=== PATIENT | male | born 1985 | race Caucasian/White ===

== ENCOUNTER 2018-05-16 15:24 | Inpatient (IN) | payer OTHER ==
[2018-05-16] MEDS ORDERED: SODIUM CHLORIDE 0.9% 1,000 ML IV STA ×2 (15:41)
[2018-05-16] MEDS ORDERED: SODIUM CHLORIDE 0.9% 500 ML 500 ML IV STA (15:41)
[2018-05-16 16:28] LABS: Glucose,Whole Blood 599 mg/dL (75-99)
[2018-05-16 17:00] LABS: Appearance,Urine Clear (Clear); Bilirubin,Urine Negative (Negative); Blood,Urine Negative (Negative); Color,Urine Colorless; Glucose,Urine (UA) 4+ (Negative); Leukocyte Esterase,Urine Negative (Negative); Nitrite,Urine Negative (Negative); Protein,Urine Negative (Negative); Specific Gravity,Urine 1.026 (1.001-1.035); Urobilinogen,Urine <2.0 mg/dL (<2.0)
[2018-05-16 17:01] LABS: Basophils % (A) 1 %; Eosinophils # (A) 0.1 k/uL (0-0.7); Eosinophils % (A) 2 %; HCT 42.4 % (39.0-53.0); HGB 15.7 gm/dL (13.0-17.5); Lymphocytes # (A) 1.7 k/uL (1.0-4.8); Lymphocytes % (A) 28 %; MCH 34.8 pg (25.0-35.0); Mean Platelet Volume 7.5; Monocytes # (A) 0.3 k/uL (0-1.0); Monocytes % (A) 4 %; Neutrophils # (A) 3.8 k/uL (1.3-7.7); Neutrophils % (A) 62 %; Platelet Count 439 k/uL (150-450); RBC 4.51 m/uL (4.30-5.90); RDW 12.7 % (11.5-15.5); WBC 6.1 k/uL (3.8-10.6)
[2018-05-16 17:04] LABS: Ketones,Urine 3+ (Negative)
[2018-05-16 17:06] LABS: ALT 53 U/L (21-72); AST 22 U/L (17-59); Albumin 4.3 g/dL (3.5-5.0); Alkaline Phosphatase 268 U/L (38-126); Anion Gap 28 mmol/L; Blood Urea Nitrogen 18 mg/dL (9-20); Calcium 10.2 mg/dL (8.4-10.2); Carbon Dioxide 17 mmol/L (22-30); Chloride 84 mmol/L (98-107); Magnesium 1.7 mg/dL (1.6-2.3); Phosphorus 6.2 mg/dL (2.5-4.5); Sodium 129 mmol/L (137-145); Total Bilirubin 1.1 mg/dL (0.2-1.3); Total Protein 8.3 g/dL (6.3-8.2)
--- NOTE | 2018-05-16 17:06 | ED ---
Recheck HPI - General Chief Complaint: Recheck/Abnormal Lab/Rx Stated Complaint: Hyperglycemia Time Seen by Provider: 05/16/18 15:40 Source: patient, RN notes reviewed, old records reviewed Mode of arrival: ambulatory Limitations: no limitations - History of Present Illness Initial Comments: This is a 33-year-old male the ER for evaluation. Patient's transfer by his family doctor for evaluation of high blood sugar possible DKA. Patient states he's been severely thirsty and feeling well for a few weeks now. Increasing urination weakness fatigue. No fevers. No real abdominal pain just overall not feeling well. Patient did have abnormal blood sugar on an outpatient basis severely elevated. No new medications no change in medications. Patient has no significant medical history. No family history of diabetes MD Complaint: abnormal lab (Hyperglycemia) -: month(s) Initial Visit For: other (Not feeling well) Returns Today for: Called Because of Abnormal Lab/Test Symptoms Since Prior Visit: no new symptoms Context: called for abnormal lab result Associated Symptoms: malaise, nausea - Related Data Home Medications Medication Instructions Recorded Confirmed No Known Home Medications 05/16/18 05/16/18 Allergies Allergy/AdvReac Type Severity Reaction Status Date / Time No Known Allergies Allergy Verified 05/16/18 16:16 Review of Systems ROS Statement: Those systems with pertinent positive or pertinent negative responses have been documented in the HPI. ROS Other: All systems not noted in ROS Statement are negative. Past Medical History Past Medical History: No Reported History History of Any Multi-Drug Resistant Organisms: None Reported Additional Past Surgical History / Comment(s): plate in arm Past Psychological History: No Psychological Hx Reported Smoking Status: Never smoker Past Alcohol Use History: Occasional Past Drug Use History: None Reported General Exam Limitations: no limitations General appearance: alert, in no apparent distress Head exam: Present: atraumatic, normocephalic, normal inspection Eye exam: Present: normal appearance, PERRL, EOMI. Absent: scleral icterus, conjunctival injection, periorbital swelling ENT exam: Present: normal exam, mucous membranes moist Neck exam: Present: normal inspection. Absent: tenderness, meningismus, lymphadenopathy Respiratory exam: Present: normal lung sounds bilaterally. Absent: respiratory distress, wheezes, rales, rhonchi, stridor Cardiovascular Exam: Present: regular rate, normal rhythm, normal heart sounds. Absent: systolic murmur, diastolic murmur, rubs, gallop, clicks GI/Abdominal exam: Present: soft, normal bowel sounds. Absent: distended, tenderness, guarding, rebound, rigid Extremities exam: Present: normal inspection, full ROM, normal capillary refill. Absent: tenderness, pedal edema, joint swelling, calf tenderness Back exam: Present: normal inspection Neurological exam: Present: alert, oriented X3, CN II-XII intact Psychiatric exam: Present: normal affect, normal mood Skin exam: Present: warm, dry, intact, normal color. Absent: rash Course Vital Signs 05/16/18 05/16/18 05/16/18 15:32 17:24 17:30 Temperature 98.3 F Pulse Rate 98 80 77 Respiratory 18 18 21 Rate Blood Pressure 117/81 119/86 O2 Sat by Pulse 100 97 97 Oximetry - Reevaluation(s) Reevaluation #1: 05/16/18 17:58 Medical record is reviewed Reevaluation #2: 05/16/18 17:58 Patient does feel improved with hydration Medical Decision Making - Medical Decision Making 31 male the ER with new onset diabetes and DKA. Patient will be admitted for treatment of blood sugar correction of blood sugar and diabetic education. - Lab Data Result diagrams: 05/16/18 15:56 05/16/18 15:56 Lab Results 05/16/18 05/16/18 05/16/18 Range/Units 15:56 15:56 15:56 WBC 6.1 (3.8-10.6) k/uL RBC 4.51 (4.30-5.90) m/uL Hgb 15.7 (13.0-17.5) gm/dL Hct 42.4 (39.0-53.0) % MCV 94.0 (80.0-100.0) fL MCH 34.8 (25.0-35.0) pg MCHC 37.0 (31.0-37.0) g/dL RDW 12.7 (11.5-15.5) % Plt Count 439 (150-450) k/uL Neutrophils % 62 % Lymphocytes % 28 % Monocytes % 4 % Eosinophils % 2 % Basophils % 1 % Neutrophils # 3.8 (1.3-7.7) k/uL Lymphocytes # 1.7 (1.0-4.8) k/uL Monocytes # 0.3 (0-1.0) k/uL Eosinophils # 0.1 (0-0.7) k/uL Basophils # 0.0 (0-0.2) k/uL Sodium 129 L (137-145) mmol/L Potassium 5.0 (3.5-5.1) mmol/L Chloride 84 L (98-107) mmol/L Carbon Dioxide 17 L (22-30) mmol/L Anion Gap 28 mmol/L BUN 18 (9-20) mg/dL Creatinine 0.90 (0.66-1.25) mg/dL Est GFR (CKD-EPI)AfAm >90 (>60 ml/min/1.73 sqM) Est GFR (CKD-EPI)NonAf >90 (>60 ml/min/1.73 sqM) Glucose 561 H* (74-99) mg/dL POC Glucose (mg/dL) (75-99) mg/dL POC Glu Logistics Associate ID Calcium 10.2 (8.4-10.2) mg/dL Phosphorus 6.2 H (2.5-4.5) mg/dL Magnesium 1.7 (1.6-2.3) mg/dL Total Bilirubin 1.1 (0.2-1.3) mg/dL AST 22 (17-59) U/L ALT 53 (21-72) U/L Alkaline Phosphatase 268 H (38-126) U/L Total Protein 8.3 H (6.3-8.2) g/dL Albumin 4.3 (3.5-5.0) g/dL Urine Color Colorless Urine Appearance Clear (Clear) Urine pH 5.0 (5.0-8.0) Ur Specific Darby 1.026 (1.001-1.035) Urine Protein Negative (Negative) Urine Glucose (UA) 4+ H (Negative) Urine Ketones 3+ H (Negative) Urine Blood Negative (Negative) Urine Nitrite Negative (Negative) Urine Bilirubin Negative (Negative) Urine Urobilinogen <2.0 (<2.0) mg/dL Ur Leukocyte Esterase Negative (Negative) Acetone, Qual Positive (Negative) 05/16/18 Range/Units 16:03 WBC (3.8-10.6) k/uL RBC (4.30-5.90) m/uL Hgb (13.0-17.5) gm/dL Hct (39.0-53.0) % MCV (80.0-100.0) fL MCH (25.0-35.0) pg MCHC (31.0-37.0) g/dL RDW (11.5-15.5) % Plt Count (150-450) k/uL Neutrophils % % Lymphocytes % % Monocytes % % Eosinophils % % Basophils % % Neutrophils # (1.3-7.7) k/uL Lymphocytes # (1.0-4.8) k/uL Monocytes # (0-1.0) k/uL Eosinophils # (0-0.7) k/uL Basophils # (0-0.2) k/uL Sodium (137-145) mmol/L Potassium (3.5-5.1) mmol/L Chloride (98-107) mmol/L Carbon Dioxide (22-30) mmol/L Anion Gap mmol/L BUN (9-20) mg/dL Creatinine (0.66-1.25) mg/dL Est GFR (CKD-EPI)AfAm (>60 ml/min/1.73 sqM) Est GFR (CKD-EPI)NonAf (>60 ml/min/1.73 sqM) Glucose (74-99) mg/dL POC Glucose (mg/dL) 599 H (75-99) mg/dL POC Glu Logistics Associate ID Gissell Griffin Calcium (8.4-10.2) mg/dL Phosphorus (2.5-4.5) mg/dL Magnesium (1.6-2.3) mg/dL Total Bilirubin (0.2-1.3) mg/dL AST (17-59) U/L ALT (21-72) U/L Alkaline Phosphatase (38-126) U/L Total Protein (6.3-8.2) g/dL Albumin (3.5-5.0) g/dL Urine Color Urine Appearance (Clear) Urine pH (5.0-8.0) Ur Specific Darby (1.001-1.035) Urine Protein (Negative) Urine Glucose (UA) (Negative) Urine Ketones (Negative) Urine Blood (Negative) Urine Nitrite (Negative) Urine Bilirubin (Negative) Urine Urobilinogen (<2.0) mg/dL Ur Leukocyte Esterase (Negative) Acetone, Qual (Negative) - EKG Data -: EKG Interpreted by Me (EKG shows normal sinus rhythm rate of 90, SC 140, QRS 80, QTC 398) - Radiology Data Radiology results: report reviewed (CT head and pelvis is negative for acute disease), image reviewed Disposition Clinical Impression: Acute hyperglycemia, DKA (diabetic ketoacidoses) Disposition: ADMITTED IP TO THIS [facility] Condition: Fair Is patient prescribed a controlled substance at d/c from ED?: No Referrals: Zachary Ward MD [Primary Care Provider] - 1-2 days
[2018-05-16 17:10] LABS: Glucose 561 mg/dL (74-99)
[2018-05-16] MEDS ORDERED: SODIUM CHLORIDE 0.9% 1,000 ML IV ONE (17:58)
[2018-05-16] MEDS ORDERED: INSULIN REGULAR 100 UNIT in SODIUM CHLORIDE 0.9% 100 ML IV SCH ×2 (18:00→18:45)
[2018-05-16 18:32] LABS: Glucose,Whole Blood 418 mg/dL (75-99)
--- NOTE | 2018-05-16 18:35 | CT ---
EXAMINATION TYPE: CT abdomen pelvis w con DATE OF EXAM: 05/16/2018 COMPARISON: None HISTORY: Hyperglycemia. CT DLP: 633.5 mGycm Automated exposure control for dose reduction was used. TECHNIQUE: Helical acquisition of images was performed from the lung bases through the pelvis. CONTRAST: Performed without Oral Contrast and with IV Contrast, patient injected with 100ml mL of Isovue 300. FINDINGS: Lung bases are clear. There is no pleural effusion. Heart size is normal. There is no pericardial eff usion. Liver spleen pancreas and stomach appear normal. Bile ducts are not dilated. There is no adrenal mass . Gallbladder appears normal. Kidneys show satisfactory contrast opacification. There is no hydronephrosis. Ureters are not dilated . There is no retroperitoneal adenopathy. Bladder distends smoothly. There is no inguinal hernia. The re is no free fluid in the pelvis. There is no evidence of free air. There is no ascites. There is no evidence of thickened appendix. Appendix appears posterior and is not dilated. There is a dilated loop of jejunum in the left upper quadrant that measures up to 3 cm. The lumbar ve rtebra have normal alignment. Disc spaces are fairly normal. Bony pelvis is intact. IMPRESSION: DILATED PROXIMAL SMALL BOWEL COULD RELATE TO LOCALIZED ILEUS AND GASTROENTERITIS. I DO NOT SUSPECT A BOWEL OBSTRUCTION.. NO FREE AIR.
[2018-05-16 19:49] LABS: ABG Base Excess -2.8 mmol/L; ABG HCO3 22 mmol/L (21-25); ABG Oxygen Saturation 96.3 % (94-97); ABG PCO2 36 mmHg (35-45); ABG PO2 88 mmHg (83-108); ABG TCO2 23 mmol/L (19-24)
[2018-05-16 19:54] LABS: Glucose,Whole Blood 358 mg/dL (75-99)
[2018-05-16] MEDS ORDERED: MORPHINE SULFATE 4 MG/ML SYRINGE IVP PRN (20:08)
[2018-05-16] MEDS ORDERED: ONDANSETRON 4 MG/2 ML VIAL IVP PRN (20:08)
--- NOTE | 2018-05-16 20:09 | P.HPIM ---
History of Present Illness H&P Date: 05/16/18 Chief Complaint: Fatigue and thirst referred from his PCPs office for elevated blood sugars The patient is a previously healthy 33-year-old male that presented to the ER via private vehicle with his mother after being referred here from his PCPs office. Apparently the patient had been seen in clinic and was noted to have unreadable elevated blood sugars. The patient himself reports 3 weeks of increasing fatigue, excessive thirst, and frequent urination the day and at night. Over the last 4 days the patient hasn't noted nausea and mild nonradiating left central abdominal pain. The patient also complains of lightheadedness and dizziness, he denies any chest pain Or shortness of breath. The patient reports a previous URI approximately 4 weeks ago where he had runny nose and sore throat which have now resolved. In the ER the patient received a comprehensive workup with noted abnormal lab serum sodium 129 serum bicarb 17, serum blood sugar of 561, serum phosphorus 6.2, alkaline phosphatase 268, urinalysis positive for glucose and ketones and positive serum acetone. He was given IV fluids and started on IV insulin drip and recommended for admission for DKA Review of Systems Pertinent positives per HPI all other review of systems otherwise negative Past Medical History Past Medical History: No Reported History History of Any Multi-Drug Resistant Organisms: None Reported Additional Past Surgical History / Comment(s): plate in arm Past Psychological History: No Psychological Hx Reported Smoking Status: Never smoker Past Alcohol Use History: Occasional Past Drug Use History: None Reported - Past Family History Father Family Medical History: Cancer Additional Family Medical History / Comment(s): SKIN Mother Additional Family Medical History / Comment(s): PSORASIS Medications and Allergies Home Medications Medication Instructions Recorded Confirmed Type No Known Home Medications 05/16/18 05/16/18 History Allergies Allergy/AdvReac Type Severity Reaction Status Date / Time No Known Allergies Allergy Verified 05/16/18 16:16 Physical Exam Vitals: Vital Signs Temp Pulse Resp BP Pulse Ox 05/16/18 17:30 77 21 119/86 97 05/16/18 17:24 80 18 97 05/16/18 15:32 98.3 F 98 18 117/81 100 Intake and Output 05/16/18 05/16/18 05/16/18 06:59 14:59 22:59 Other: Weight 65.771 kg Constitutional: No acute distress, conversant, pleasant Eyes: Anicteric sclerae, moist conjunctiva, no lid-lag, PERRLA ENMT: Dry mucous membranes, normal oropharynx Neck:Supple, FROM, no masses, or JVD, No carotid bruits; No thyromegaly Lungs: Clear to auscultation, Clear to percussion, Normal respiratory effort, no accessory muscle use Cardiovascular: Heart regular in rate and rhythm, No murmurs, gallops, or rubs no peripheral edema Abdominal: Soft Nontender, nom distended, no guarding, no rebound or rigidity, Normoactive bowel sounds No hepatomegaly, No splenomegaly, No palpable mass No abdominal wall hernia noted Skin: Normal temperature, tone, texture, turgor, No induration No subcutaneous nodules, No rash, lesions, No ulcers Extremities:No digital cyanosis No clubbing, Pedal pulses intact and symmetr ical Radial pulses intact and symmetrical Normal gait and station, No calf tenderness Psychiatric: Alert and oriented to person, place and time, Appropriate affect Intact judgement Neuro: Muscles Strength 5/5 in all 4 extremities, Sensation to light touch grossly present throughout, Cranial nerves II-XII grossly intact. No focal sensory deficits Results CBC & Chem 7: 05/16/18 15:56 05/17/18 00:13 Labs: Abnormal Lab Results - Last 24 Hours (Table) 05/16/18 05/16/18 05/16/18 Range/Units 15:56 15:56 16:03 Sodium 129 L (137-145) mmol/L Chloride 84 L (98-107) mmol/L Carbon Dioxide 17 L (22-30) mmol/L Glucose 561 H* (74-99) mg/dL POC Glucose (mg/dL) 599 H (75-99) mg/dL Phosphorus 6.2 H (2.5-4.5) mg/dL Alkaline Phosphatase 268 H (38-126) U/L Total Protein 8.3 H (6.3-8.2) g/dL Urine Glucose (UA) 4+ H (Negative) Urine Ketones 3+ H (Negative) 05/16/18 05/16/18 Range/Units 18:29 19:52 Sodium (137-145) mmol/L Chloride (98-107) mmol/L Carbon Dioxide (22-30) mmol/L Glucose (74-99) mg/dL POC Glucose (mg/dL) 418 H 358 H (75-99) mg/dL Phosphorus (2.5-4.5) mg/dL Alkaline Phosphatase (38-126) U/L Total Protein (6.3-8.2) g/dL Urine Glucose (UA) (Negative) Urine Ketones (Negative) Assessment and Plan (1) DKA (diabetic ketoacidoses) Current Visit: Yes Status: Acute Code(s): E13.10 - OTH DIABETES MELLITUS WITH KETOACIDOSIS WITHOUT COMA SNOMED Code(s): 315159475 (2) Type 1 diabetes Current Visit: Yes Status: Acute Code(s): E10.9 - TYPE 1 DIABETES MELLITUS WITHOUT COMPLICATIONS SNOMED Code(s): 42993892 (3) Hyponatremia Current Visit: Yes Status: Acute Code(s): E87.1 - HYPO-OSMOLALITY AND HYPONATREMIA SNOMED Code(s): 45857183 Plan: The patient is admitted anticipated greater than 2 midnight stay with DKA and new onset type 1 diabetes after presenting with dehydration, fatigue, dizziness and elevated blood sugars. Patient was given aggressive IV fluid rehydration the ER and started on insulin drip which will be continued. We'll continue to check serial electrolytes for resolution of his anion gap. We'll obtain a chest x-ray and EKG and ABG and A1c with plans to consult conservation educator and dietitian. CT abdomen and pelvis suggested ileus versus gastroenteritis. We'll continue to manage a patient's symptoms supportively with morphine and Zofran for pain and an nausea respectively. We'll continue to monitor his clinical course CODE STATUS Full code Discussed plan of care with: Patient and his mother Anticipated discharge 2-3 days Prophylaxis : Protonix and SCDs respectively
--- NOTE | 2018-05-16 20:31 | XR ---
EXAMINATION TYPE: XR chest 2V DATE OF EXAM: 05/16/2018 COMPARISON: NONE HISTORY: Chest pain TECHNIQUE: Frontal and lateral views of the chest are obtained. FINDINGS: Heart and mediastinum are normal. Lungs are clear. Diaphragm is normal. Bony thorax appear s normal. Pulmonary vascularity is normal. There are chest leads. IMPRESSION: Normal chest.
[2018-05-16 20:48] LABS: Glucose,Whole Blood 380 mg/dL (75-99)
[2018-05-16 21:50] LABS: Anion Gap 19 mmol/L; Blood Urea Nitrogen 15 mg/dL (9-20); Carbon Dioxide 18 mmol/L (22-30); Chloride 95 mmol/L (98-107); Glucose 334 mg/dL (74-99); Sodium 132 mmol/L (137-145)
[2018-05-16 21:52] LABS: Potassium 4.7 mmol/L (3.5-5.1)
[2018-05-16 22:37] LABS: Glucose,Whole Blood 367 mg/dL (75-99)
[2018-05-16 23:40] LABS: Glucose,Whole Blood 253 mg/dL (75-99)
[2018-05-17 00:43] LABS: Glucose,Whole Blood 170 mg/dL (75-99)
[2018-05-17 01:03] LABS: Anion Gap 14 mmol/L; Blood Urea Nitrogen 15 mg/dL (9-20); Carbon Dioxide 22 mmol/L (22-30); Chloride 98 mmol/L (98-107); Sodium 134 mmol/L (137-145)
[2018-05-17 01:04] LABS: Glucose 183 mg/dL (74-99); Phosphorus 4.4 mg/dL (2.5-4.5); Potassium 3.8 mmol/L (3.5-5.1)
[2018-05-17 01:48] LABS: Glucose,Whole Blood 202 mg/dL (75-99)
[2018-05-17 02:48] LABS: Glucose,Whole Blood 125 mg/dL (75-99)
[2018-05-17 03:49] LABS: Glucose,Whole Blood 68 mg/dL (75-99)
[2018-05-17 04:23] LABS: Glucose,Whole Blood 91 mg/dL (75-99)
[2018-05-17 05:54] LABS: Glucose,Whole Blood 254 mg/dL (75-99)
[2018-05-17] MEDS: METOCLOPRAMIDE 5 MG/ML 2 ML VIAL IVP SCH ×5 (06:19→17:37)
[2018-05-17] MEDS: D5-0.45% NACL WITH KCL 20MEQ/L 1,000 ML IV SCH ×3 (06:22→11:44)
[2018-05-17 06:55] LABS: Glucose,Whole Blood 290 mg/dL (75-99)
[2018-05-17] MEDS: SODIUM CHLORIDE 0.9% 1,000 ML IV SCH ×2 (07:16→07:17)
[2018-05-17 08:14] LABS: Anion Gap 12 mmol/L; Blood Urea Nitrogen 13 mg/dL (9-20); Calcium 8.4 mg/dL (8.4-10.2); Carbon Dioxide 22 mmol/L (22-30); Chloride 99 mmol/L (98-107); Glucose 239 mg/dL (74-99); Potassium 3.5 mmol/L (3.5-5.1); Sodium 133 mmol/L (137-145)
[2018-05-17 08:36] LABS: Glucose,Whole Blood 260 mg/dL (75-99)
[2018-05-17] MEDS: PANTOPRAZOLE 40 MG/10 ML VIAL IVP SCH (08:39)
[2018-05-17 09:42] LABS: Glucose,Whole Blood 282 mg/dL (75-99)
[2018-05-17 10:55] LABS: Glucose,Whole Blood 259 mg/dL (75-99)
[2018-05-17] MEDS ORDERED: INSULIN DETEMIR (LEVEMIR) 100 UNIT/ML SYR SQ STA (11:30)
[2018-05-17 11:37] LABS: Glucose,Whole Blood 214 mg/dL (75-99)
[2018-05-17] MEDS: INSULIN ASPART (NovoLOG) 100 UNIT/ML VIAL SQ SCH ×2 (11:47→17:33)
[2018-05-17 12:49] LABS: Anion Gap 7 mmol/L; Blood Urea Nitrogen 11 mg/dL (9-20); Calcium 8.7 mg/dL (8.4-10.2); Carbon Dioxide 26 mmol/L (22-30); Chloride 99 mmol/L (98-107); Glucose 180 mg/dL (74-99); Potassium 3.6 mmol/L (3.5-5.1); Sodium 132 mmol/L (137-145)
[2018-05-17 12:56] LABS: Glucose,Whole Blood 303 mg/dL (75-99)
--- NOTE | 2018-05-17 12:59 | P.PN ---
Subjective Progress Note Date: 05/17/18 Principal diagnosis: DKA Patient was examined. No acute events overnight. Patient reports mild nausea but no vomiting. He denies any fever or chills. He denies any chest pain, shortness breath or palpitations. Seen by staff development educator. Objective - Vital Signs Vital signs: Vital Signs Temp 98.3 F 05/17/18 08:00 Pulse 78 05/17/18 12:00 Resp 18 05/17/18 12:00 BP 111/68 05/17/18 12:00 Pulse Ox 98 05/17/18 08:00 Intake & Output 05/16/18 05/17/18 05/17/18 18:59 06:59 18:59 Intake Total 38.690 13.111 Balance 38.690 13.111 Weight 65.771 kg 65.5 kg Intake: Intake, IV Titration 38.690 13.111 Amount Insulin Regular 100 unit 38.690 13.111 In Sodium Chloride 0.9% 100 ml @ 0.05 UNITS/KG/HR 3.321 mls/hr IV .Q24H [facility] Rx#:[id number] Other: # Voids 1 1 - Exam General: [non toxic], [no distress], [appears at stated age] Derm: [warm], [dry] Head: [atraumatic], [normocephalic], [symmetric] Eyes: [EOMI], [no lid lag], [anicteric sclera] Mouth: [no lip lesion], [mucus membranes moist] Cardiovascular: [S1S2 reg], [no murmur], [positive posterior tibial pulse bilateral], Lungs: [CTA bilateral], [no rhonchi, no rales] , [no accessory muscle use] Abdominal: [soft], [ nontender to palpation], [no guarding], [no appreciable organomegaly] Ext: [no gross muscle atrophy], [no edema], [no contractures] Neuro: [ CN II-XI grossly intact], [no focal neuro deficits] Psych: [Alert], [oriented], [appropriate affect] - Labs CBC & Chem 7: 05/16/18 15:56 05/17/18 07:48 Labs: Abnormal Lab Results - Last 24 Hours (Table) 03/20/19 03/20/19 03/20/19 Range/Units 15:56 15:56 16:03 Sodium 129 L (137-145) mmol/L Chloride 84 L (98-107) mmol/L Carbon Dioxide 17 L (22-30) mmol/L Creatinine (0.66-1.25) mg/dL Glucose 561 H* (74-99) mg/dL POC Glucose (mg/dL) 599 H (75-99) mg/dL Phosphorus 6.2 H (2.5-4.5) mg/dL Alkaline Phosphatase 268 H (38-126) U/L Total Protein 8.3 H (6.3-8.2) g/dL Urine Glucose (UA) 4+ H (Negative) Urine Ketones 3+ H (Negative) 05/16/18 05/16/18 05/16/18 Range/Units 18:29 19:52 20:29 Sodium 132 L (137-145) mmol/L Chloride 95 L (98-107) mmol/L Carbon Dioxide 18 L (22-30) mmol/L Creatinine (0.66-1.25) mg/dL Glucose 334 H (74-99) mg/dL POC Glucose (mg/dL) 418 H 358 H (75-99) mg/dL Phosphorus (2.5-4.5) mg/dL Alkaline Phosphatase (38-126) U/L Total Protein (6.3-8.2) g/dL Urine Glucose (UA) (Negative) Urine Ketones (Negative) 05/16/18 05/16/18 05/16/18 Range/Units 20:46 22:35 23:38 Sodium (137-145) mmol/L Chloride (98-107) mmol/L Carbon Dioxide (22-30) mmol/L Creatinine (0.66-1.25) mg/dL Glucose (74-99) mg/dL POC Glucose (mg/dL) 380 H 367 H 253 H (75-99) mg/dL Phosphorus (2.5-4.5) mg/dL Alkaline Phosphatase (38-126) U/L Total Protein (6.3-8.2) g/dL Urine Glucose (UA) (Negative) Urine Ketones (Negative) 05/17/18 05/17/18 05/17/18 Range/Units 00:13 00:41 01:46 Sodium 134 L (137-145) mmol/L Chloride (98-107) mmol/L Carbon Dioxide (22-30) mmol/L Creatinine 0.54 L (0.66-1.25) mg/dL Glucose 183 H (74-99) mg/dL POC Glucose (mg/dL) 170 H 202 H (75-99) mg/dL Phosphorus (2.5-4.5) mg/dL Alkaline Phosphatase (38-126) U/L Total Protein (6.3-8.2) g/dL Urine Glucose (UA) (Negative) Urine Ketones (Negative) 05/17/18 05/17/18 05/17/18 Range/Units 02:46 03:46 05:52 Sodium (137-145) mmol/L Chloride (98-107) mmol/L Carbon Dioxide (22-30) mmol/L Creatinine (0.66-1.25) mg/dL Glucose (74-99) mg/dL POC Glucose (mg/dL) 125 H 68 L 254 H (75-99) mg/dL Phosphorus (2.5-4.5) mg/dL Alkaline Phosphatase (38-126) U/L Total Protein (6.3-8.2) g/dL Urine Glucose (UA) (Negative) Urine Ketones (Negative) 05/17/18 05/17/18 05/17/18 Range/Units 06:53 07:48 08:32 Sodium 133 L (137-145) mmol/L Chloride (98-107) mmol/L Carbon Dioxide (22-30) mmol/L Creatinine 0.50 L (0.66-1.25) mg/dL Glucose 239 H (74-99) mg/dL POC Glucose (mg/dL) 290 H 260 H (75-99) mg/dL Phosphorus (2.5-4.5) mg/dL Alkaline Phosphatase (38-126) U/L Total Protein (6.3-8.2) g/dL Urine Glucose (UA) (Negative) Urine Ketones (Negative) 05/17/18 05/17/18 05/17/18 Range/Units 09:29 10:44 11:33 Sodium (137-145) mmol/L Chloride (98-107) mmol/L Carbon Dioxide (22-30) mmol/L Creatinine (0.66-1.25) mg/dL Glucose (74-99) mg/dL POC Glucose (mg/dL) 282 H 259 H 214 H (75-99) mg/dL Phosphorus (2.5-4.5) mg/dL Alkaline Phosphatase (38-126) U/L Total Protein (6.3-8.2) g/dL Urine Glucose (UA) (Negative) Urine Ketones (Negative) Microbiology - Last 24 Hours (Table) 05/16/18 15:56 Urine Culture - Preliminary Urine,Voided Assessment and Plan Assessment: Assessment and Plan 1. DKA 2. Type 1 diabetes 3. Hyponatremia 1. Initially with bicarbonate level of 17, glucose 561, ketonuria positive acetone. No anion gap at this time, bicarbonate within normal limits. Will start Lantus 10 units along with insulin sliding scale, DC insulin drip and 2 hours. Switch D5 half normal saline to normal saline if able to tolerate diet. Zofran as needed for nausea or vomiting. Patient with no insurance, likely to go home on 7030 insulin. Consult dietitian. Accu-Cheks hourly. Hypoglycemic precautions. Telemetry monitoring. Daily BMP. Will need endocrine follow-up in the outpatient setting. 2. Unusual given age, but likely diagnosis given the lack of family history, normal BMI. Management as above. 3. Sodium improved from 129-132. Likely secondary to hyperglycemia. Continue normal saline. Daily BMP. Patient to be transitioned from IV insulin to subcutaneous insulin. A1c pending. Will likely be discharged tomorrow on 7030 insulin.
[2018-05-17 14:14] LABS: Glucose,Whole Blood 262 mg/dL (75-99)
[2018-05-17 16:56] VITALS: BMI 20.1
[2018-05-17 17:30] LABS: Glucose,Whole Blood 188 mg/dL (75-99)
[2018-05-17 20:31] LABS: Glucose,Whole Blood 264 mg/dL (75-99)
[2018-05-17] MEDS ORDERED: INSULIN DETEMIR (LEVEMIR) 100 UNIT/ML SYR SQ SCH (21:00)
[2018-05-18 05:48] LABS: Glucose,Whole Blood 245 mg/dL (75-99)
[2018-05-18 06:19] LABS: Basophils % (A) 0 %; Eosinophils # (A) 0.1 k/uL (0-0.7); Eosinophils % (A) 3 %; HCT 39.2 % (39.0-53.0); HGB 14.3 gm/dL (13.0-17.5); Lymphocytes # (A) 1.5 k/uL (1.0-4.8); Lymphocytes % (A) 38 %; MCH 34.3 pg (25.0-35.0); MCHC 36.6 g/dL (31.0-37.0); MCV 93.7 fL (80.0-100.0); Mean Platelet Volume 6.8; Monocytes # (A) 0.2 k/uL (0-1.0); Monocytes % (A) 5 %; Neutrophils # (A) 2.1 k/uL (1.3-7.7); Neutrophils % (A) 52 %; Platelet Count 253 k/uL (150-450); RBC 4.18 m/uL (4.30-5.90); RDW 12.8 % (11.5-15.5)
[2018-05-18 06:33] LABS: Anion Gap 8 mmol/L; Blood Urea Nitrogen 11 mg/dL (9-20); Calcium 8.9 mg/dL (8.4-10.2); Carbon Dioxide 24 mmol/L (22-30); Chloride 99 mmol/L (98-107); Glucose 251 mg/dL (74-99); Potassium 3.8 mmol/L (3.5-5.1); Sodium 131 mmol/L (137-145)
[2018-05-18] MEDS: METOCLOPRAMIDE 5 MG/ML 2 ML VIAL IVP SCH ×3 (06:59→11:32)
[2018-05-18] MEDS: INSULIN ASPART (NovoLOG) 100 UNIT/ML VIAL SQ SCH ×2 (07:04→12:13)
[2018-05-18] MEDS: PANTOPRAZOLE 40 MG/10 ML VIAL IVP SCH (08:14)
[2018-05-18 08:55] VITALS: BP 105/67; PULSE 85; RESP 16; TEMP 97.7
--- NOTE | 2018-05-18 10:59 | P.DS ---
Providers Date of admission: 05/16/18 17:59 Expected date of discharge: 05/18/18 Attending physician: Iris Ramírez MD Primary care physician: Zachary Ward MD Hospital Course: The patient is a previously healthy 33-year-old male that presented to the ER via private vehicle with his mother after being referred here from his PCPs office. Apparently the patient had been seen in clinic and was noted to have unreadable elevated blood sugars. The patient himself reports 3 weeks of increasing fatigue, excessive thirst, and frequent urination the day and at night. Over the last 4 days the patient hasn't noted nausea and mild nonradiating left central abdominal pain. The patient also complains of lightheadedness and dizziness, he denies any chest pain Or shortness of breath. The patient reports a previous URI approximately 4 weeks ago where he had runny nose and sore throat which have now resolved. In the ER the patient received a comprehensive workup with noted abnormal lab serum sodium 129 serum bicarb 17, serum blood sugar of 561, serum phosphorus 6.2, alkaline phosphatase 268, urinalysis positive for glucose and ketones and positive serum acetone. He was given IV fluids and started on IV insulin drip and recommended for admission for DKA. Patient's bicarbonate was within normal limits on day 2. He was transitioned off the insulin drip with 10 units of Lantus and sliding scale. Patient was initially started on D5 half-normal saline which was discontinued and transitioned to normal saline when he was able to eat. He was given Zofran as needed for nausea or vomiting. certified adaptive physical educator was consulted and recommended 7030 insulin regimen as patient did not have insurance. Patient was seen and examined prior to discharge. No acute events overnight. Patient reports no difficulties eating. No chest pain, shortness breath or palpitations. No nausea or vomiting. No fever or chills. No abdominal pain, changes in urination or bowel habits. Looking for to going home. General: [non toxic], [no distress], [appears at stated age] Derm: [warm], [dry] Head: [atraumatic], [normocephalic], [symmetric] Eyes: [EOMI], [no lid lag], [anicteric sclera] Mouth: [no lip lesion], [mucus membranes moist] Cardiovascular: [S1S2 reg], [no murmur], [positive posterior tibial pulse bilateral], Lungs: [CTA bilateral], [no rhonchi, no rales] , [no accessory muscle use] Abdominal: [soft], [ nontender to palpation], [no guarding], [no appreciable organomegaly] Ext: [no gross muscle atrophy], [no edema], [no contractures] Neuro: [ CN II-XI grossly intact], [no focal neuro deficits] Psych: [Alert], [oriented], [appropriate affect] Assessment and Plan 1. DKA 2. Type 1 diabetes 3. Hyponatremia 1. Initially with bicarbonate level of 17, glucose 561, ketonuria positive acetone. No anion gap at this time, bicarbonate within normal limits. Will start Lantus 10 units along with insulin sliding scale, DC insulin drip and 2 hours. Switch D5 half normal saline to normal saline if able to tolerate diet. Zofran as needed for nausea or vomiting. Patient with no insurance, likely to go home on 7030 insulin. Consult dietitian. Accu-Cheks hourly. Hypoglycemic precautions. Telemetry monitoring. Daily BMP. Will need endocrine follow-up in the outpatient setting. 2. Unusual given age, but likely diagnosis given the lack of family history, normal BMI. Management as above. 3. Sodium improved from 129-132-131. Likely secondary to hyperglycemia. Continue normal saline. Daily BMP. We will discharge patient home on 25 units of 7030 in the morning and 15 units at bedtime. Patient has been advised to monitor his blood sugars 3 times a day and that morning. He has been advised of hypoglycemic symptoms and told to carry something sweet in the case he needs it. We'll discharge him with close follow-up with PCP and endocrinology. Pertinent Studies: Abdomen pelvis CT Patient Condition at Discharge: Fair Plan - Discharge Summary Discharge Rx Participant: No New Discharge Prescriptions: New Alcohol Antiseptic Pads [Alcohol Swabs] 1 each TP AC-TID #90 med..pad Insulin NPH/Reg Insulin 70/30 [humuLIN 70/30 VIAL] 25 unit SQ AC-BRKFST #3 vial Insulin NPH/Reg Insulin 70/30 [humuLIN 70/30 VIAL] 15 unit SQ AC-SUPPER #2 vial Syringe-Needle,Insulin,0.5 ml [INSULIN SYRINGE 29G 1/2" 0.5ML] 1 syr SQ DIRECTED #60 each Lancets 1 each MC AC-TID #90 each Discharge Medication List Alcohol Antiseptic Pads [Alcohol Swabs] 1 each TP AC-TID #90 med..pad 05/18/18 [Rx] Insulin NPH/Reg Insulin 70/30 [humuLIN 70/30 VIAL] 15 unit SQ AC-SUPPER #2 vial 05/18/18 [Rx] Insulin NPH/Reg Insulin 70/30 [humuLIN 70/30 VIAL] 25 unit SQ AC-BRKFST #3 vial 05/18/18 [Rx] Lancets 1 each MC AC-TID #90 each 05/18/18 [Rx] Syringe-Needle,Insulin,0.5 ml [INSULIN SYRINGE 29G 02/28" 0.5ML] 1 syr SQ DIRECTED #60 each 05/18/18 [Rx] Follow up Appointment(s)/Referral(s): Zachary Ward MD [Primary Care Provider] - 05/24/18 11:00 am () Abbie Talley MD [STAFF PHYSICIAN] - 1 Week Patient Instructions/Handouts: Diabetic Ketoacidosis (DC) Activity/Diet/Wound Care/Special Instructions: pt will need indigent funds-see CM Diet: Diabetic diet Follow-up with PCP within 1-2 days of discharge. Follow-up with endocrinology within 1 week of discharge. Please take all medications as advised. He will take 7030 insulin 25 units in the morning and 15 units at night. Please check your blood sugars at least 3 times a day. Please be advised of hypoglycemic symptoms. Discharge Disposition: HOME SELF-CARE
[2018-05-18] MEDS ORDERED: INSULN ASP PRT/INSULIN ASPART 100 UNIT/ML 10 ML VIAL SQ ONE (11:53)
[2018-05-18 11:57] LABS: Glucose,Whole Blood 334 mg/dL (75-99)
[2018-05-18 14:50] LABS: Glucose,Whole Blood 247 mg/dL (75-99)
[2018-05-19] MEDS ORDERED: PANTOPRAZOLE 40 MG TABLET PO SCH (07:30)
[2018-05-21 10:08] LABS: Hemoglobin A1C 15.9
== END 2018-05-18 15:15 | disposition home or self-care (01) | DRG 638 ==
LOC: EC 15:24 → 3SCARD 17:59
PROVIDERS: ADMIT Internal Medicine; ATTEND Internal Medicine
DX: E10.10 Type 1 diabetes mellitus with ketoacidosis without coma (principal); E87.1 Hypo-osmolality and hyponatremia; E86.0 Dehydration; Z80.9 Family history of malignant neoplasm, unspecified
CPT/HCPCS: 36415; 36600; 71046; 74177; 80048; 80051; 80053; 81003; 82009; 82565; 82805; 82947; 83036; 83690; 83735; 84100; 84520; 85025; 87086; 93005; 94760; 96360; 96361; 99285